=== PATIENT | female | born 2000 | race Caucasian/White ===

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

== ENCOUNTER → 2018-04-19 | Outpatient (CLI) | payer OTHER ==
[2018-04-19 08:40] LABS: HEMATOCRIT 40.4 % (37.0-47.0); HEMOGLOBIN 13.3 g/dl (12.0-16.0); MEAN CELL VOLUME 86.3 fl (81.0-99.0); MEAN CORPUSCULAR HGB 28.4 pg (27.0-31.0); MEAN CORPUSCULAR HGB CONC 32.9 g/dl (33.0-37.0); MEAN PLATELET VOLUME 10.3 fl (9.6-12.3); RED BLOOD COUNT 4.68 10*6/uL (4.10-5.10); RED CELL DISTRI WIDTH 15.5 % (0-14.5); WHITE BLOOD COUNT 7.9 10*3/uL (4.8-10.8)
[2018-04-19 09:11] LABS: ALBUMIN 4.3 gm/dl (3.1-4.5); BUN 14 mg/dl (7-24); CHLORIDE 102 mmol/L (98-107); CHOLESTEROL 393 mg/dL (<200); CREATININE 1.34 mg/dL (0.55-1.02); POTASSIUM 3.9 mmol/L (3.5-5.1); SGOT/AST 61 IU/L (3-35); SGPT/ALT 38 U/L (12-78); SODIUM 138 mmol/L (136-145); TOTAL PROTEIN 8.1 gm/dL (6.4-8.2); TRIGLYCERIDES 241 mg/dl (<150); VLDL CHOLESTEROL 48 mg/dL (6-40)
[2018-04-19 09:36] LABS: ALKALINE PHOSPHATASE 78 U/L (45-117); HDL CHOLESTEROL 50 mg/dl (40-60); LDL CHOLESTEROL 295 mg/dL (9-159)
== END | disposition home or self-care (01) ==
LOC: LAB 08:14
PROVIDERS: Family Medicine
DX: E03.9 Hypothyroidism, unspecified (principal); E55.9 Vitamin D deficiency, unspecified; E78.00 Pure hypercholesterolemia, unspecified; R53.83 Other fatigue

== ENCOUNTER → 2018-05-31 | Outpatient (CLI) | payer OTHER ==
[2018-05-31 15:36] LABS: FREE T4 1.57 ng/dl (0.76-1.46); THYROID STIM HORMONE (HS) 0.733 uIU/ml (0.358-4.75)
== END | disposition home or self-care (01) ==
LOC: LAB 14:36
PROVIDERS: Family Medicine
DX: E03.9 Hypothyroidism, unspecified (principal)

== ENCOUNTER → 2019-12-17 | Outpatient (CLI) | payer SELFPAY ==
[2019-12-17 12:15] LABS: HEMATOCRIT 43.5 % (37.0-47.0); MEAN CELL VOLUME 88.8 fl (81.0-99.0); MEAN CORPUSCULAR HGB 28.8 pg (27.0-31.0); MEAN CORPUSCULAR HGB CONC 32.4 g/dl (33.0-37.0); MEAN PLATELET VOLUME 10.1 fl (9.6-12.3); RED BLOOD COUNT 4.9 10*6/uL (4.10-5.10); RED CELL DISTRI WIDTH 13.8 % (0-14.5); WHITE BLOOD COUNT 8.2 10*3/uL (4.8-10.8)
[2019-12-17 12:37] LABS: ALKALINE PHOSPHATASE 51 U/L (45-117); BUN 12 mg/dl (7-24); CHLORIDE 104 mmol/L (98-107); CHOLESTEROL 392 mg/dL (<200); CREATININE 0.97 mg/dL (0.55-1.02); HDL CHOLESTEROL 61 mg/dl (40-60); LDL CHOLESTEROL 271 mg/dL (9-159); POTASSIUM 4.1 mmol/L (3.5-5.1); SGOT/AST 44 IU/L (3-35); SGPT/ALT 39 U/L (12-78); SODIUM 139 mmol/L (136-145); TOTAL PROTEIN 7.8 gm/dL (6.4-8.2); TRIGLYCERIDES 298 mg/dl (<150); VLDL CHOLESTEROL 60 mg/dL (6-40)
[2019-12-17 13:03] LABS: FREE T4 0.38 ng/dl (0.76-1.46)
[2019-12-17 13:20] LABS: VITAMIN D, 25-HYDROXY 16.9 ng/mL (30-100)
== END | disposition home or self-care (01) ==
LOC: LAB 11:47
PROVIDERS: Family Medicine
DX: E55.9 Vitamin D deficiency, unspecified (principal); R53.83 Other fatigue

== ENCOUNTER 2020-05-29 10:09 | Emergency (ER) | payer SELFPAY ==
[~2020-05-29] VITALS: Ht 144.7 cm; Wt 68.0 kg
[2020-05-29 10:33] VITALS: BP 103/65
[2020-05-29 11:58] LABS: BASO # 0.1 10*3/uL (0.0-0.1); EOS # 0.1 10*3/uL (0.0-0.4); EOS % 2.1 % (1.0-4.0); HEMATOCRIT 41.2 % (37.0-47.0); LYMPH % 32.2 % (27.0-41.0); MEAN CELL VOLUME 92.8 fl (81.0-99.0); MEAN CORPUSCULAR HGB CONC 32.3 g/dl (33.0-37.0); MEAN PLATELET VOLUME 10.6 fl (9.6-12.3); MONO # 0.5 10*3/uL (0.1-1.0); MONO % 7.3 % (3.0-9.0); NEUT # 3.6 10*3/uL (2.3-7.9); NEUT % 57.1 % (47.0-73.0); PLATELET COUNT AUTOMATED 231 10*3/uL (130-400); RED BLOOD COUNT 4.44 10*6/uL (4.10-5.10); RED CELL DISTRI WIDTH 14.3 % (0-14.5); WHITE BLOOD COUNT 6.3 10*3/uL (4.8-10.8)
[2020-05-29 12:13] LABS: ALBUMIN 4.3 gm/dl (3.1-4.5); ALKALINE PHOSPHATASE 56 U/L (45-117); BUN 13 mg/dl (7-24); CHLORIDE 103 mmol/L (98-107); CREATININE 1.25 mg/dL (0.55-1.02); LIPASE 211 U/L (73-393); POTASSIUM 3.9 mmol/L (3.5-5.1); SGOT/AST 111 IU/L (3-35); SGPT/ALT 69 U/L (12-78); SODIUM 140 mmol/L (136-145); TOTAL PROTEIN 8.6 gm/dL (6.4-8.2)
[2020-05-29 12:47] LABS: BILIRUBIN Negative (Negative); BLOOD Negative (Negative); CLARITY Cloudy (Clear); COLOR Yellow (Yellow); GLUCOSE Negative (Negative); KETONE Negative (Negative); LEUKO ESTERASE Trace (Negative); NITRITE Negative (Negative); SPECIFIC GRAVITY >= 1.030 (1.001-1.030); UROBILINOGEN 0.2 E.U./dl (0.0-1.0)
[2020-05-29 13:04] LABS: BACTERIA 2+; EPITHELIAL CELLS 21-30
[2020-05-29] MEDS ORDERED: NEXIUM40 MG PO (14:03)
== END 2020-05-29 14:10 | disposition home or self-care (01) ==
LOC: ED 10:09
PROVIDERS: Physician Assistant
DX: K29.70 Gastritis, unspecified, without bleeding (principal); E03.9 Hypothyroidism, unspecified; Z88.8 Allergy status to other drugs, medicaments and biological substances

== ENCOUNTER → 2020-09-15 | Outpatient (CLI) | payer SELFPAY ==
[~2020-09-15] MED LIST changes: +NEXIUM40 MG PO
== END | disposition home or self-care (01) ==
LOC: COVID19 10:53
PROVIDERS: ATTEND Internal Medicine
DX: Z20.822 Contact with and (suspected) exposure to COVID-19 (principal)

== ENCOUNTER → 2020-10-24 | Outpatient (CLI) | payer OTHER ==
[2020-10-24 11:01] LABS: HEMATOCRIT 38.5 % (37.0-47.0); MEAN CORPUSCULAR HGB 30.2 pg (27.0-31.0); MEAN CORPUSCULAR HGB CONC 32.5 g/dl (33.0-37.0); RED BLOOD COUNT 4.14 10*6/uL (4.10-5.10); RED CELL DISTRI WIDTH 15.6 % (0-14.5); WHITE BLOOD COUNT 7.8 10*3/uL (4.8-10.8)
[2020-10-24 11:34] LABS: ALBUMIN 3.7 gm/dl (3.1-4.5); ALKALINE PHOSPHATASE 58 U/L (45-117); BUN 7 mg/dl (7-24); CHLORIDE 104 mmol/L (98-107); CHOLESTEROL 333 mg/dL (<200); CREATININE 0.87 mg/dL (0.55-1.02); HDL CHOLESTEROL 63 mg/dl (40-60); LDL CHOLESTEROL 199 mg/dL (9-159); POTASSIUM 3.6 mmol/L (3.5-5.1); SGOT/AST 54 IU/L (3-35); SGPT/ALT 46 U/L (12-78); SODIUM 136 mmol/L (136-145); TRIGLYCERIDES 353 mg/dl (<150); VLDL CHOLESTEROL 71 mg/dL (6-40)
[2020-10-24 11:53] LABS: VITAMIN D, 25-HYDROXY 12.6 ng/mL (30-100)
== END | disposition home or self-care (01) ==
LOC: LAB 10:39
PROVIDERS: ATTEND Family Medicine
DX: E55.9 Vitamin D deficiency, unspecified (principal); E78.00 Pure hypercholesterolemia, unspecified; R53.83 Other fatigue; E03.9 Hypothyroidism, unspecified

== ENCOUNTER 2020-11-12 19:47 | Emergency (ER) | payer OTHER ==
[~2020-11-12] VITALS: Wt 81.6 kg
[2020-11-12 21:00] LABS: BASO # 0.1 10*3/uL (0.0-0.1); BASO % 0.6 % (0.0-1.0); EOS # 0.1 10*3/uL (0.0-0.4); EOS % 0.8 % (1.0-4.0); LYMPH # 2.3 10*3/uL (1.3-4.4); LYMPH % 21.5 % (27.0-41.0); MEAN CELL VOLUME 92.4 fl (81.0-99.0); MEAN CORPUSCULAR HGB 30.6 pg (27.0-31.0); MEAN CORPUSCULAR HGB CONC 33.1 g/dl (33.0-37.0); MEAN PLATELET VOLUME 10.5 fl (9.6-12.3); MONO # 0.7 10*3/uL (0.1-1.0); MONO % 6.3 % (3.0-9.0); NEUT # 7.5 10*3/uL (2.3-7.9); PLATELET COUNT AUTOMATED 217 10*3/uL (130-400); RED BLOOD COUNT 4.22 10*6/uL (4.10-5.10); RED CELL DISTRI WIDTH 15.7 % (0-14.5); WHITE BLOOD COUNT 10.8 10*3/uL (4.8-10.8)
[2020-11-12 21:15] LABS: ALBUMIN 3.7 gm/dl (3.1-4.5); ALKALINE PHOSPHATASE 70 U/L (45-117); BUN 10 mg/dl (7-24); CHLORIDE 106 mmol/L (98-107); CREATININE 0.72 mg/dL (0.55-1.02); POTASSIUM 3.4 mmol/L (3.5-5.1); SGOT/AST 27 IU/L (3-35); SGPT/ALT 34 U/L (12-78); SODIUM 137 mmol/L (136-145)
[2020-11-12 23:29] VITALS: BP 123/84
== END 2020-11-12 23:40 | disposition home or self-care (01) ==
LOC: ED 19:47
PROVIDERS: Physician Assistant
DX: O03.9 Complete or unspecified spontaneous abortion without complication (principal); E87.6 Hypokalemia; E03.9 Hypothyroidism, unspecified; Z3A.01 Less than 8 weeks gestation of pregnancy; Z88.8 Allergy status to other drugs, medicaments and biological substances; Z79.899 Other long term (current) drug therapy

== ENCOUNTER 2021-01-02 14:40 | Emergency (ER) | payer OTHER ==
[~2021-01-02] VITALS: Ht 144.7 cm; Wt 72.6 kg
== END 2021-01-02 16:31 | disposition left against medical advice (07) ==
LOC: ED 14:40
DX: H57.89 Other specified disorders of eye and adnexa (principal); Z53.21 Procedure and treatment not carried out due to patient leaving prior to being seen by health care provider; Z88.8 Allergy status to other drugs, medicaments and biological substances; Z79.899 Other long term (current) drug therapy

== ENCOUNTER 2021-06-30 21:28 | Emergency (ER) | payer OTHER ==
[2021-06-30 21:43] VITALS: BP 115/69
[2021-06-30] MEDS ORDERED: SEPTDS PO (22:40)
== END 2021-06-30 22:42 | disposition home or self-care (01) ==
LOC: ED 21:28
DX: L02.425 Furuncle of right lower limb (principal); Z79.899 Other long term (current) drug therapy

== ENCOUNTER 2023-12-31 16:49 | Inpatient (IN) | payer OTHER ==
[~2023-12-31] VITALS: Ht 144.7 cm; Wt 81.6 kg
[~2023-12-31 16:49] MED LIST changes: +SEPTDS PO
[2023-12-31 17:14] VITALS: BP 117/80
[2023-12-31] MEDS ORDERED: HYDROmorphONE Hydrochloride 0.5 MG/0.5 ML SYRINGE IV ONE ×2 (17:35→21:40)
[2023-12-31] MEDS ORDERED: Ondansetron Hydrochloride 4 MG/2 ML VIAL IV ONE (17:35)
[2023-12-31] MEDS ORDERED: SODIUM CHLORIDE 0.9% 1,000 ML IV ONE ×3 (17:35→22:05)
[2023-12-31] MEDS ORDERED: IOHEXOL 300 MG/ML 100 ML VIAL IV ONE (17:40)
[2023-12-31 17:52] LABS: BASO # 0.1 10*3/uL (0.0-0.1); BASO % 0.4 % (0.0-1.0); EOS # 0.1 10*3/uL (0.0-0.4); EOS % 0.5 % (1.0-4.0); HEMATOCRIT 44.7 % (37.0-47.0); LYMPH # 1.7 10*3/uL (1.3-4.4); LYMPH % 14.2 % (27.0-41.0); MEAN CELL VOLUME 88.2 fl (81.0-99.0); MEAN CORPUSCULAR HGB 28.2 pg (27.0-31.0); MEAN PLATELET VOLUME 9.3 fl (9.6-12.3); MONO # 0.7 10*3/uL (0.1-1.0); MONO % 6.1 % (3.0-9.0); NEUT # 9.2 10*3/uL (2.3-7.9); NEUT % 78.6 % (47.0-73.0); PLATELET COUNT AUTOMATED 337 10*3/uL (130-400); RED BLOOD COUNT 5.07 10*6/uL (4.10-5.10); RED CELL DISTRI WIDTH 12.8 % (0-14.5); WHITE BLOOD COUNT 11.7 10*3/uL (4.8-10.8)
[2023-12-31 17:56] LABS: BILIRUBIN Negative (Negative); BLOOD Negative (Negative); CLARITY Cloudy (Clear); COLOR Dark Yellow (Yellow); GLUCOSE Negative (Negative); KETONE Trace (Negative); LEUKO ESTERASE Trace (Negative); NITRITE Negative (Negative); PH 6.5 (4.5-8.0); SPECIFIC GRAVITY 1.025 (1.001-1.030)
[2023-12-31 18:06] LABS: BACTERIA 2+
[2023-12-31 18:11] LABS: ALKALINE PHOSPHATASE 88 U/L (46-116); BUN 11 mg/dl (9-23); CHLORIDE 105 mmol/L (98-107); LIPASE 162 U/L (12-53); POTASSIUM 4.1 mmol/L (3.4-5.1); SGPT/ALT 211 U/L (5-49); TOTAL PROTEIN 8.2 gm/dL (6.0-8.0)
[2023-12-31 21:00] VITALS: BP 89/57
[2023-12-31] MEDS ORDERED: Ceftriaxone Sodium 1 GM/10 ML SYR IV ONE (21:40)
[2023-12-31] MEDS ORDERED: Magnesium Hydroxide 30 ML UDC PO PRN (22:00)
[2023-12-31] MEDS ORDERED: Ondansetron Hydrochloride 4 MG/2 ML VIAL IV PRN (22:00)
[2024-01-01] VITALS (7 sets, daily range): BP systolic 90–119; BP diastolic 47–85
[2024-01-01] MEDS ORDERED: AZITHROMYCIN 250 ML IV SCH (00:30)
[2024-01-01 03:49] LABS: BASO % 0.4 % (0.0-1.0); EOS % 0.6 % (1.0-4.0); HEMATOCRIT 38.7 % (37.0-47.0); LYMPH # 1.8 10*3/uL (1.3-4.4); LYMPH % 24.8 % (27.0-41.0); MEAN CORPUSCULAR HGB 28.2 pg (27.0-31.0); MEAN PLATELET VOLUME 9.6 fl (9.6-12.3); MONO # 0.6 10*3/uL (0.1-1.0); MONO % 8.1 % (3.0-9.0); NEUT # 4.8 10*3/uL (2.3-7.9); NEUT % 65.8 % (47.0-73.0); PLATELET COUNT AUTOMATED 261 10*3/uL (130-400); RED CELL DISTRI WIDTH 12.7 % (0-14.5); WHITE BLOOD COUNT 7.3 10*3/uL (4.8-10.8)
[2024-01-01 04:15] LABS: ALKALINE PHOSPHATASE 81 U/L (46-116); BUN 9 mg/dl (9-23); CHLORIDE 108 mmol/L (98-107); CHOLESTEROL 188 mg/dL (<200); LDL CHOLESTEROL 128 mg/dL (9-159); SGPT/ALT 573 U/L (5-49); TOTAL PROTEIN 6.4 gm/dL (6.0-8.0); TRIGLYCERIDES 118 mg/dl (<150)
[2024-01-01] MEDS ORDERED: SODIUM CHLORIDE 0.9% 1,000 ML IV ONE (06:00)
[2024-01-01] MEDS ORDERED: Piperacillin Sodium/Tazobact 50 ML IV SCH (06:00)
[2024-01-01] MEDS ORDERED: CLARITIN10 MG PO (08:12)
[2024-01-01] MEDS ORDERED: NASAL SPRAY (08:13)
[2024-01-01] MEDS ORDERED: Enoxaparin Sodium 40 MG/0.4 ML SYR SC SCH (10:00)
[2024-01-01] MEDS ORDERED: Ceftriaxone Sodium 1 GM in SYRINGE INFUSION 10 ML IV SCH (23:00)
[2024-01-02] VITALS (14 sets, daily range): BP systolic 92–116; BP diastolic 54–74
[2024-01-02] MEDS ORDERED: Levothyroxine Sodium 125 MCG TAB PO SCH (06:00)
[2024-01-02] MEDS ORDERED: SODIUM CHLORIDE 0.9% 1,000 ML IV ONE (06:10)
[2024-01-02 07:11] LABS: BASO % 0.6 % (0.0-1.0); EOS # 0.1 10*3/uL (0.0-0.4); EOS % 2.4 % (1.0-4.0); HEMATOCRIT 38.9 % (37.0-47.0); LYMPH # 2.1 10*3/uL (1.3-4.4); MEAN CELL VOLUME 86.3 fl (81.0-99.0); MEAN CORPUSCULAR HGB 28.4 pg (27.0-31.0); MEAN CORPUSCULAR HGB CONC 32.9 g/dl (33.0-37.0); MEAN PLATELET VOLUME 9.4 fl (9.6-12.3); MONO # 0.5 10*3/uL (0.1-1.0); MONO % 8.8 % (3.0-9.0); NEUT # 2.7 10*3/uL (2.3-7.9); PLATELET COUNT AUTOMATED 220 10*3/uL (130-400); RED BLOOD COUNT 4.51 10*6/uL (4.10-5.10); RED CELL DISTRI WIDTH 12.7 % (0-14.5); WHITE BLOOD COUNT 5.4 10*3/uL (4.8-10.8)
[2024-01-02 07:35] LABS: ALKALINE PHOSPHATASE 95 U/L (46-116); BUN 10 mg/dl (9-23); CHLORIDE 105 mmol/L (98-107); POTASSIUM 3.5 mmol/L (3.4-5.1); SGPT/ALT 604 U/L (5-49); TOTAL PROTEIN 6.9 gm/dL (6.0-8.0)
[2024-01-02] MEDS ORDERED: BUPIVACAINE 0.5% 50 ML VIAL ONE (10:45)
[2024-01-02] MEDS ORDERED: BUPIVACAINE 0.5% IV ONE (10:46)
[2024-01-02] MEDS ORDERED: HYDROmorphONE Hydrochloride 0.5 MG/0.5 ML SYRINGE IV ONE (12:25)
[2024-01-02] MEDS ORDERED: HYDROmorphONE Hydrochloride 0.5 MG/0.5 ML SYRINGE ONE (12:40)
[2024-01-02] MEDS ORDERED: LEVOTHYROXINE100 MC1 PO (16:37)
[2024-01-02] MEDS ORDERED: HYDROCODONE-AC1 EAC1 PO (16:37)
[2024-01-02] MEDS ORDERED: PROPOFOL 200 MG/20 ML VIAL IV ONE (17:13)
[2024-01-02] MEDS ORDERED: Ondansetron Hydrochloride 4 MG/2 ML VIAL IV ONE (17:13)
[2024-01-02] MEDS ORDERED: SEVOFLURANE 250 ML BOT INH ONE (17:13)
[2024-01-02] MEDS ORDERED: GLYCOPYRROLATE IN WATER/PF 0.4 MG/2 ML SYRINGE IV ONE (17:13)
[2024-01-02] MEDS ORDERED: Neostigmine Methylsulfate 3 MG/3 ML SYRINGE IV ONE (17:13)
[2024-01-02] MEDS ORDERED: fentaNYL CITRATE 100 MCG/2 ML VIAL IV ONE (17:13)
[2024-01-02] MEDS ORDERED: Midazolam Hydrochloride 2 MG/2 ML VIAL IV ONE (17:13)
[2024-01-02] MEDS ORDERED: ROCURONIUM BROMIDE 50 MG/5 ML SYRINGE IV ONE (17:13)
[2024-01-02] MEDS ORDERED: Ondansetron Hydrochloride 4 MG TAB PO ONE (17:30)
[2024-01-02] MEDS ORDERED: Ondansetron4 MG PO (17:32)
[2024-01-03] MEDS ORDERED: Levothyroxine Sodium 100 MCG TAB PO SCH (06:00)
== END 2024-01-02 17:25 | disposition home or self-care (01) | DRG 417 ==
LOC: ED 16:49 → EDHOLD 21:37
PROVIDERS: Nurse Practitioner Family; Student in an Organized Health Care Education/Training Program; ADMIT Internal Medicine; ATTEND Internal Medicine
PROC: 0FT44ZZ Resection of Gallbladder, Percutaneous Endoscopic Approach (ICD-10-PCS; principal; 2024-01-02)
DX: K80.62 Calculus of gallbladder and bile duct with acute cholecystitis without obstruction (principal); K85.10 Biliary acute pancreatitis without necrosis or infection; N30.00 Acute cystitis without hematuria; E44.0 Moderate protein-calorie malnutrition; E03.9 Hypothyroidism, unspecified; R73.9 Hyperglycemia, unspecified; R74.01 Elevation of levels of liver transaminase levels; D72.825 Bandemia; E66.09 Other obesity due to excess calories; E80.6 Other disorders of bilirubin metabolism; Z82.49 Family history of ischemic heart disease and other diseases of the circulatory system; Z68.39 Body mass index [BMI] 39.0-39.9, adult